=== PATIENT | male | born 1960 | race Two or more races ===

== ENCOUNTER 2024-06-30 10:35 | Inpatient (IN) | payer MEDICAID ==
[~2024-06-30] VITALS: Ht 175.3 cm; Wt 93.0 kg
[2024-06-30] VITALS (18 sets, daily range): BP systolic 91–113; BP diastolic 58–84; PULSE 52–75; RESP 14; TEMP 97.6; O2SAT 99–100
[2024-06-30 10:49] LABS: BASOPHILS % (AUTO) 1.5 % (0.0-2.0); EOSINOPHILS % (AUTO) 2.9 % (1.0-6.0); HEMATOCRIT 43.6 % (41-53); HEMOGLOBIN 14.7 g/dL (13.5-17.5); LYMPHOCYTES # (AUTO) 2.7 K/uL (1.0-4.8); LYMPHOCYTES % (AUTO) 27.4 % (22.0-44.0); MEAN CORPUSCULAR HEMOGLOBIN 31.9 pg (26.0-34.0); MEAN CORPUSCULAR HGB CONC 33.7 G/dL (31.0-37.0); MEAN CORPUSCULAR VOLUME 95 fL (80-100); MONOCYTES # (AUTO) 0.6 K/uL (0.1-1.0); MONOCYTES % (AUTO) 6.1 % (2.0-9.0); NEUTROPHILS # (AUTO) 6.1 K/uL (1.8-7.7); NEUTROPHILS % (AUTO) 62.1 % (40.0-70.0); PLATELET COUNT (AUTO) 219 K/uL (150-450); RED BLOOD CELL COUNT(AUTO) 4.61 MIL/uL (4.50-5.90); RED CELL DISTRIBUTION WIDTH 14.2 % (11.5-14.5); WHITE BLOOD COUNT (AUTO) 9.9 K/uL (4.5-11.0)
[2024-06-30] MEDS: ATORVASTATIN CALCIUM 40 MG TABLET PO ONE (10:49)
[2024-06-30] MEDS: HEPARIN SODIUM,PORCINE 5,000 UNITS/ML VIAL IVP ONE (10:49)
[2024-06-30] MEDS: NITROGLYCERIN 2% (1 GM=INCH) OINTMENT PACKET TP ONE (10:49)
[2024-06-30] MEDS ORDERED: SODIUM BICARBONATE 50 MEQ/50 ML VIAL ONE (10:56)
[2024-06-30] MEDS ORDERED: IOHEXOL 300 MG/ML 100 ML VIAL ONE (10:56)
[2024-06-30] MEDS ORDERED: LIDOCAINE/PF 1% 30 ML VIAL ONE (10:56)
[2024-06-30 10:57] LABS: ANION GAP 12 mmol/L (8-16); CALCIUM, TOTAL 9.1 mg/dL (8.8-10.5); CARBON DIOXIDE 23 mmol/L (22-29); CHLORIDE 104 mmol/L (98-107); CREATININE 1.12 mg/dL (0.60-1.30); GLOMERULAR FILTR. RATE CALC > 60 mL/min (>60); GLUCOSE,RANDOM 154 mg/dL (70-110); POTASSIUM 4.1 mmol/L (3.5-5.1); SODIUM SERUM 139 mmol/L (136-145); UREA NITROGEN, BLOOD 13 mg/dL (7-18)
[2024-06-30] MEDS ORDERED: ONDANSETRON HCL 4 MG/2 ML VIAL IVP PRN (11:00)
[2024-06-30] MEDS ORDERED: MORPHINE SULFATE 2 MG/ML SYRINGE IVP PRN (11:00)
[2024-06-30] MEDS ORDERED: MORPHINE SULFATE 4 MG/ML SYRINGE IVP PRN (11:00)
[2024-06-30] MEDS ORDERED: ACETAMINOPHEN 325 MG TABLET PO PRN (11:00)
[2024-06-30 11:01] LABS: PROTHROMBIN TIME 10.7 SEC (9.4-11.6)
[2024-06-30 11:07] LABS: TROPONIN I-HIGH SENSITIVITY 121 ng/L (<76)
[2024-06-30] MEDS ORDERED: SODIUM CHLORIDE 0.9% 100 ML ONE (11:14)
[2024-06-30] MEDS ORDERED: IOHEXOL 350 MG/ML 100 ML VIAL ONE (11:14)
[2024-06-30 11:16] LABS: B-TYPE NATRIURETIC PEPTIDE 96 pg/mL (0-100)
[2024-06-30] MEDS ORDERED: MIDAZOLAM HCL 2 MG/2 ML VIAL ONE ×2 (11:39→11:50)
[2024-06-30] MEDS ORDERED: FentaNYL CITRATE PF 100 MCG/2 ML VIAL ONE (11:39)
[2024-06-30] MEDS ORDERED: ATROPINE SULFATE 0.1 MG/ML 10 ML SYRINGE IVP ONE (11:46)
[2024-06-30] MEDS ORDERED: NITROGLYCERIN 50 MG/D5% WATER 250 ML ONE (12:07)
[2024-06-30] MEDS ORDERED: PHENYLEPHRINE HCL IN 0.9% NACL 400 MCG/10 ML SYRINGE IVP ONE (12:19)
[2024-06-30] MEDS ORDERED: TICAGRELOR 90 MG TABLET ONE (12:24)
[2024-06-30] MEDS ORDERED: EPTIFIBATIDE 2 MG/ML 10 ML VIAL IVP ONE ×3 (12:28→13:00)
[2024-06-30] MEDS ORDERED: [UNRECOGNIZED DRUG - OTHER] IV ONE (12:29)
[2024-06-30] MEDS ORDERED: EPTIFIBATIDE IV ONE (12:29)
[2024-06-30] MEDS: HEPARIN SODIUM 2,000 UNITS in HEPARIN SODIUM 1000 UNITS/NS 1,000 ML IARTER ONE (13:16)
[2024-06-30] MEDS: IOHEXOL 300 MG/ML 100 ML VIAL IARTER ONE ×2 (13:21→13:24)
[2024-06-30] MEDS: FentaNYL CITRATE PF 100 MCG/2 ML VIAL IVP ONE ×2 (13:23)
[2024-06-30] MEDS: MIDAZOLAM HCL 2 MG/2 ML VIAL IVP ONE ×2 (13:23→13:24)
[2024-06-30] MEDS: EPTIFIBATIDE 2 MG/ML 10 ML VIAL IVP ONE ×4 (13:25→13:59)
[2024-06-30] MEDS: ONDANSETRON HCL 4 MG/2 ML VIAL IVP ONE (13:45)
[2024-06-30] MEDS: PANTOPRAZOLE SODIUM 40 MG/VIAL IVP SCH (13:45)
[2024-06-30] MEDS: PHENYLEPHRINE HCL IN 0.9% NACL 400 MCG/10 ML SYRINGE IVP ONE (13:47)
[2024-06-30] MEDS: LIDOCAINE 1% 30 ML/SOD BICARB 8.4% 4 ML SQ ONE (13:54)
[2024-06-30] MEDS: HEPARIN SODIUM,PORCINE 1,000 UNITS/ML 10 ML VIAL IV ONE (13:58)
[2024-06-30] MEDS: TICAGRELOR 90 MG TABLET PO ONE (13:58)
[2024-06-30] MEDS: [UNRECOGNIZED DRUG - OTHER] IV PRN (14:01)
[2024-06-30] MEDS: SODIUM CHLORIDE 0.9% IV PRN (14:01)
[2024-06-30] MEDS: SODIUM CHLORIDE 0.9% 500 ML IV ONE (14:01)
[2024-06-30] MEDS: DOCUSATE SODIUM 100 MG CAPSULE PO SCH (21:00)
[2024-06-30] MEDS: TICAGRELOR 90 MG TABLET PO SCH (21:00)
[2024-06-30] MEDS: CHLORHEXIDINE GLUCONATE 2% TOWELETTE [2'S/6'S] TP SCH (23:41)
[2024-07-01] VITALS: BP_SYST 127; BP_SYST 129; BP_DIAS 61; BP_DIAS 97; PULSE 51; PULSE 63; RESP 12; TEMP 98.6; O2SAT 99
[2024-07-01 04:00] VITALS: BP 128/62; PULSE 48; RESP 18; TEMP 98.9; O2SAT 99
[2024-07-01 05:50] LABS: BASOPHILS % (AUTO) 0.2 % (0.0-2.0); EOSINOPHILS % (AUTO) 1.4 % (1.0-6.0); HEMATOCRIT 39.7 % (41-53); HEMOGLOBIN 13.1 g/dL (13.5-17.5); LYMPHOCYTES # (AUTO) 1.1 K/uL (1.0-4.8); LYMPHOCYTES % (AUTO) 11.2 % (22.0-44.0); MEAN CORPUSCULAR HEMOGLOBIN 31.4 pg (26.0-34.0); MEAN CORPUSCULAR VOLUME 95 fL (80-100); MONOCYTES # (AUTO) 0.5 K/uL (0.1-1.0); MONOCYTES % (AUTO) 5.5 % (2.0-9.0); NEUTROPHILS # (AUTO) 7.7 K/uL (1.8-7.7); NEUTROPHILS % (AUTO) 81.7 % (40.0-70.0); PLATELET COUNT (AUTO) 169 K/uL (150-450); RED BLOOD CELL COUNT(AUTO) 4.17 MIL/uL (4.50-5.90); RED CELL DISTRIBUTION WIDTH 14.6 % (11.5-14.5); WHITE BLOOD COUNT (AUTO) 9.4 K/uL (4.5-11.0)
[2024-07-01 06:01] LABS: ANION GAP 6 mmol/L (8-16); CALCIUM, TOTAL 8.3 mg/dL (8.8-10.5); CARBON DIOXIDE 25 mmol/L (22-29); CHLORIDE 108 mmol/L (98-107); CHOL/HDL RATIO 2.5 (4.2-7.3); CHOLESTEROL 99 mg/dL (131-200); CREATININE 0.85 mg/dL (0.60-1.30); GLOMERULAR FILTR. RATE CALC > 60 mL/min (>60); GLUCOSE,RANDOM 101 mg/dL (70-110); HDL CHOLESTEROL 40 mg/dL (40-60); LDL CHOL (CALC.) 46 mg/dL (0-130); POTASSIUM 3.5 mmol/L (3.5-5.1); SODIUM SERUM 139 mmol/L (136-145); TRIGLYCERIDES 63 mg/dL (15-150); UREA NITROGEN, BLOOD 11 mg/dL (7-18)
[2024-07-01 08:00] VITALS: BP 105/69; PULSE 47; RESP 17; TEMP 98.2; O2SAT 98
[2024-07-01] MEDS: ASPIRIN 81 MG CHEWABLE TABLET PO SCH (09:39)
[2024-07-01] MEDS: POTASSIUM CHLORIDE 10 MEQ ER TABLET PO ONE (11:36)
[2024-07-01 12:00] VITALS: BP 126/73; PULSE 53; PULSE 59; RESP 19; TEMP 98.1; O2SAT 95
[2024-07-01 16:00] VITALS: BP 123/73; PULSE 50; RESP 16; TEMP 98.1; O2SAT 98
[2024-07-01 18:46] LABS: TROPONIN I-HIGH SENSITIVITY > 25000 ng/L (<76)
[2024-07-01 20:00] VITALS: PULSE 55
[2024-07-01] MEDS: ATORVASTATIN CALCIUM 40 MG TABLET PO SCH (20:58)
[2024-07-02] VITALS: BP 122/71; PULSE 54; RESP 16; TEMP 98.4; O2SAT 98
[2024-07-02 04:00] VITALS: BP 119/70; PULSE 52; RESP 14; TEMP 98.6; O2SAT 95
[2024-07-02 05:46] LABS: BASOPHILS % (AUTO) 0.5 % (0.0-2.0); EOSINOPHILS % (AUTO) 1.9 % (1.0-6.0); HEMOGLOBIN 12.9 g/dL (13.5-17.5); LYMPHOCYTES % (AUTO) 11.6 % (22.0-44.0); MEAN CORPUSCULAR HGB CONC 33.9 G/dL (31.0-37.0); MEAN CORPUSCULAR VOLUME 95 fL (80-100); MONOCYTES # (AUTO) 0.6 K/uL (0.1-1.0); NEUTROPHILS # (AUTO) 6.6 K/uL (1.8-7.7); PLATELET COUNT (AUTO) 164 K/uL (150-450); RED BLOOD CELL COUNT(AUTO) 4.02 MIL/uL (4.50-5.90); RED CELL DISTRIBUTION WIDTH 14.3 % (11.5-14.5); WHITE BLOOD COUNT (AUTO) 8.4 K/uL (4.5-11.0)
[2024-07-02 06:19] LABS: TROPONIN I-HIGH SENSITIVITY 16073 ng/L (<76)
[2024-07-02 06:27] LABS: ANION GAP 8 mmol/L (8-16); CALCIUM, TOTAL 8.2 mg/dL (8.8-10.5); CARBON DIOXIDE 24 mmol/L (22-29); CHLORIDE 106 mmol/L (98-107); CREATINE KINASE, TOTAL ONLY 252 U/L (39-308); CREATININE 0.83 mg/dL (0.60-1.30); GLOMERULAR FILTR. RATE CALC > 60 mL/min (>60); GLUCOSE,RANDOM 95 mg/dL (70-110); POTASSIUM 3.4 mmol/L (3.5-5.1); SODIUM SERUM 138 mmol/L (136-145); UREA NITROGEN, BLOOD 9 mg/dL (7-18)
[2024-07-02 08:00] VITALS: BP 120/96; PULSE 61; RESP 17; TEMP 98.3; O2SAT 96
[2024-07-02] MEDS: POTASSIUM CHLORIDE 20 MEQ ER TABLET PO ONE (08:37)
[2024-07-02 12:00] VITALS: BP 134/77; PULSE 59; PULSE 60; RESP 18; TEMP 98.5; O2SAT 97
[2024-07-02] MEDS: CLOPIDOGREL BISULFATE 300 MG TABLET PO ONE (15:35)
[2024-07-02 16:00] VITALS: BP 106/69; PULSE 81; RESP 19; TEMP 98.1; O2SAT 95
[2024-07-02 20:00] VITALS: BP 118/66; PULSE 74; PULSE 78; RESP 25; TEMP 98.4; O2SAT 97
[2024-07-03] VITALS: BP 110/77; PULSE 72; RESP 18; TEMP 98.5; O2SAT 93
[2024-07-03 04:00] VITALS: BP 119/72; PULSE 72; RESP 31; TEMP 99.7; O2SAT 92
[2024-07-03 06:05] LABS: BASOPHILS % (AUTO) 0.2 % (0.0-2.0); EOSINOPHILS % (AUTO) 0.5 % (1.0-6.0); HEMATOCRIT 40.4 % (41-53); HEMOGLOBIN 13.3 g/dL (13.5-17.5); LYMPHOCYTES # (AUTO) 0.6 K/uL (1.0-4.8); LYMPHOCYTES % (AUTO) 8.2 % (22.0-44.0); MEAN CORPUSCULAR HEMOGLOBIN 31.5 pg (26.0-34.0); MEAN CORPUSCULAR VOLUME 95 fL (80-100); MONOCYTES # (AUTO) 0.4 K/uL (0.1-1.0); MONOCYTES % (AUTO) 5.8 % (2.0-9.0); NEUTROPHILS # (AUTO) 6.1 K/uL (1.8-7.7); NEUTROPHILS % (AUTO) 85.3 % (40.0-70.0); PLATELET COUNT (AUTO) 149 K/uL (150-450); RED BLOOD CELL COUNT(AUTO) 4.23 MIL/uL (4.50-5.90); RED CELL DISTRIBUTION WIDTH 14.4 % (11.5-14.5); WHITE BLOOD COUNT (AUTO) 7.1 K/uL (4.5-11.0)
[2024-07-03 06:09] LABS: ANION GAP 10 mmol/L (8-16); CALCIUM, TOTAL 8.1 mg/dL (8.8-10.5); CARBON DIOXIDE 22 mmol/L (22-29); CHLORIDE 103 mmol/L (98-107); CREATININE 1.02 mg/dL (0.60-1.30); GLOMERULAR FILTR. RATE CALC > 60 mL/min (>60); GLUCOSE,RANDOM 98 mg/dL (70-110); POTASSIUM 3.6 mmol/L (3.5-5.1); SODIUM SERUM 135 mmol/L (136-145); UREA NITROGEN, BLOOD 12 mg/dL (7-18)
[2024-07-03 08:00] VITALS: BP 128/81; PULSE 81; RESP 29; TEMP 98.7; O2SAT 95
[2024-07-03] MEDS ORDERED: ASPI-1444 PO (08:17)
[2024-07-03] MEDS ORDERED: CLOP75TA60 PO (08:17)
[2024-07-03] MEDS ORDERED: ATOR40TA28 PO (08:18)
[2024-07-03] MEDS: CLOPIDOGREL BISULFATE 75 MG TABLET PO SCH (09:24)
== END 2024-07-03 12:00 | disposition home or self-care (01) | DRG 174 ==
LOC: EMS 10:35 → EDH 10:54 → ICU 13:45
PROVIDERS: ADMIT Internal Medicine; ATTEND Internal Medicine
PROC: 027034Z Dilation of Coronary Artery, One Artery with Drug-eluting Intraluminal Device, Percutaneous Approach (ICD-10-PCS; principal; 2024-06-30)
PROC: 4A023N7 Measurement of Cardiac Sampling and Pressure, Left Heart, Percutaneous Approach (ICD-10-PCS; 2024-06-30)
PROC: 5A1223Z Performance of Cardiac Pacing, Continuous (ICD-10-PCS; 2024-06-30)
PROC: B2111ZZ Fluoroscopy of Multiple Coronary Arteries using Low Osmolar Contrast (ICD-10-PCS; 2024-06-30)
PROC: B2151ZZ Fluoroscopy of Left Heart using Low Osmolar Contrast (ICD-10-PCS; 2024-06-30)
PROC: B240ZZ3 Ultrasonography of Single Coronary Artery, Intravascular (ICD-10-PCS; 2024-06-30)
DX: I21.19 ST elevation (STEMI) myocardial infarction involving other coronary artery of inferior wall (principal); I49.5 Sick sinus syndrome; F17.210 Nicotine dependence, cigarettes, uncomplicated; Z82.49 Family history of ischemic heart disease and other diseases of the circulatory system
CPT/HCPCS: 33210; 33216; 71045; 71275; 75960; 80048; 80061; 82550; 83735; 83880; 84484; 85025; 85610; 85730; 86850; 86900; 86901; 87081; 87481; 92920; 92928; 93005; 99291; J0461; J1327; J1644; J2250; J2470; J3010; J3490; J7050; Q9967; 36415-L1; 36415-TC